=== PATIENT | female | born 1945 | race African-American/Black ===

== ENCOUNTER 2021-06-02 10:53 | Emergency (ER) | payer MEDICARE, MEDICAID, SELFPAY ==
[2021-06-02] VITALS (18 sets, daily range): BP systolic 110–129; BP diastolic 54–71; PULSE 61–79; RESP 9–17; TEMP 36.1; O2SAT 95–100
--- NOTE | ~2021-06-02 | XR_ITS ---
EXAMINATION: XR chest 1V portable EXAM DATE: 06/02/2021 11:30 INDICATION: Altered mental status. TECHNIQUE: Portable AP frontal chest x-ray was obtained. There is no prior study for comparison. FINDINGS: There is cardiomegaly and vascular congestion. No confluent consolidation, pneumothorax or pleural effusion suspected. The bones are osteopenic. There are bony degenerative changes. IMPRESSION: Cardiomegaly, pulmonary vascular congestion. Reviewed, dictated and finalized at location [facility]. ING MACHINE OPERATOR
--- NOTE | ~2021-06-02 | CT_ITS ---
EXAMINATION: CT brain wo con DATE: 06/02/2021 12:03 INDICATION: Altered mental state TECHNIQUE: Computed tomography (CT) of the head was performed without intravenous contrast. The mA wa s adjusted according to patient size. Iterative reconstruction technique was employed. Exam dose: 60 5.33 mGy-cm total exam DLP. COMPARISON: None FINDINGS: Prominent bilateral vertebral artery calcification, basilar artery and bilateral carotid si phon and supraclinoid internal carotid artery calcification. There is nonspecific prominent diminished attenuation of the subcortical and periventricular cerebral white matter, left greater than right, likely due to chronic small vessel ischemic changes. Bilateral periventricular chronic lacunar infarcts, more prominent on the left There is prominence of the ventricles and cortical sulci consistent with central and cortical cerebra l volume loss. There is cerebellar volume loss. No intracranial mass lesion or hemorrhage, midline shift or mass effect or apparent subdural or epidu ral hematoma. No fracture or bone destruction of the cranial vault. The mastoid air cells and paranasal sinuses are unremarkable. IMPRESSION: Cerebral atherosclerosis and chronic small vessel ischemic changes of the cerebral white matter Chronic bilateral periventricular lacunar infarcts No acute intracranial finding Cerebral and cerebellar volume loss Reviewed, dictated and finalized at Location [facility]. Reviewed, dictated and finalized at location A. RIALS COORDINATOR
[2021-06-02 11:43] LABS: Basophils Percent Auto 0.1 % (0.2-1.2); Eosinophils Absolute Auto 0.1 K/mm3 (0-0.3); Eosinophils Percent Auto 0.8 % (0-4.4); Hematocrit 35.3 % (37.0-47.0); Hemoglobin 11.4 g/dL (12.0-15.0); Immature Granulocyte Absolute 0.03 K/mm3 (0.00-0.031); Immature Granulocyte Percent A 0.4 % (0-0.5); Lymphocytes Absolute Auto 1.44 K/mm3 (0.9-3.2); Lymphocytes Percent Auto 18.7 % (18.3-44.2); Mean Corpuscular HGB Conc 32.3 g/dl (32-36); Mean Corpuscular Hemoglobin 33.3 pg (26-34); Mean Corpuscular Volume 103.2 fl (80-100); Mean Platelet Volume 10.8 fl (7.4-10.4); Monocytes Percent Auto 13.1 % (2.6-8.5); Neutrophils Absolute Auto 5.1 K/mm3 (1.3-6.7); Neutrophils Percent Auto 66.9 % (45.5-73.1); Platelet Count Result 172 k/mm3 (150-375); Red Blood Count 3.42 M/mm3 (4.2-5.4); Red Cell Distribution Width 13.9 % (11.5-14.5); White Blood Count 7.7 K/mm3 (4.5-10.0)
[2021-06-02 11:58] LABS: Glucose Point of Care 76 mg/dl (65-105)
[2021-06-02 13:13] LABS: Alanine Aminotransferase 23 U/L (4-35); Alkaline Phosphatase 132 U/L (38-126); Anion Gap 15 mmol/L (8-16); Aspartate Amino Transferase 30 U/L (14-36); Bilirubin,Total 0.4 mg/dL (0.2-1.3); Blood Urea Nitrogen 51 mg/dL (7-17); Calcium 9.3 mg/dL (8.4-10.2); Carbon Dioxide 27 mmol/L (22-30); Chloride 94 mmol/L (98-107); Estimated CRCL calculation 4 ml/min; Estimated Glomerular Filt Rate 4; Glucose 85 mg/dL (65-110); Potassium 4.8 mmol/L (3.4-5.0); Sodium 136 mmol/L (137-145)
--- NOTE | 2021-06-02 14:23 | ECG_ITS ---
Measurements Intervals [place] Rate: 76 P: 61 CA: 225 QRS: -36 QRSD: 193 T: 130 QT: 446 QTc: 502 Interpretive Statements SINUS RHYTHM WITH FIRST DEGREE AV BLOCK LEFT AXIS DEVIATION LEFT BUNDLE BRANCH BLOCK BASELINE ARTIFACT- II, III, AVR, AVL, AVF, V1, V3-V6 ABNORMAL ECG Electronically Signed On 06-02-2021 18:15:14 FIRMWARE SOFTWARE VERIFICATION ENGINEER by Dillon Cheung D.O.
--- NOTE | 2021-06-02 15:20 | ED.GENADULT ---
HPI - General Adult General Chief complaint: Altered Mental Status Stated complaint: AMS Time Seen by Provider: 06/02/21 11:17 Source: patient, EMS and other (tax collector) Mode of arrival: EMS Limitations: physical limitation and dementia History of Present Illness HPI narrative: Patient is a 75-year-old female with dementia presenting for altered mental status per EMS. They reported to the patient has been altered for unknown amount of time. long-term did not call the ER to give patient report prior to her presentation. Patient denies any pain. Patient states that she does not know why she was sent to the emergency department. Patient has history of dementia and confusion. Patient is not end-stage renal failure and receives dialysis. Patient was due for dialysis today but instead it was sent to the emergency department. They did not cough, fever, shortness of breath, vomiting or diarrhea. Patient does not create urine. Related Data Home Medications Medication Instructions Recorded Confirmed B complex with C 20-folic acid 1 cap PO DAILY 06/02/21 [Renal Caps] atorvastatin 10 mg PO HS 06/02/21 bisacodyl 10 mg PO DAILY 06/02/21 carvedilol 12.5 mg PO DAILY 06/02/21 clopidogrel [Plavix] 75 mg PO DAILY 06/02/21 levetiracetam 500 mg PO BID 06/02/21 losartan 50 mg PO DAILY 06/02/21 melatonin 3 mg PO HS 06/02/21 mirtazapine [Remeron] 7.5 mg PO HS 06/02/21 nitroglycerin 0.4 mg SUBLINGUAL Q5-15M PRN 06/02/21 nut.tx.imp.renal fxn,lac-reduc 1 ea PO BID 06/02/21 [[place] Carb Steady] pantoprazole [Protonix] 20 mg PO QAM 06/02/21 psyllium husk [Metamucil] 1 tbsp PO DAILY 06/02/21 sennosides [senna] 17.2 mg PO DAILY 06/02/21 sevelamer carbonate [Renvela] 800 mg PO BID 06/02/21 sucralfate [Carafate] 1 g PO QID 06/02/21 tramadol 50 mg PO Q4H PRN 06/02/21 06/02/21 Allergies Allergy/AdvReac Type Severity Reaction Status Date / Time No Known Allergies Allergy Verified 06/02/21 11:02 Review of Systems Review of Systems: CONSTITUTIONAL: Denies fever, chills, or sweats. EYES: Denies visual changes, redness, or discharge. ENT: Denies rhinorrhea, congestion, sore throat, or otalgia. CARDIOVASCULAR: Denies chest pain, palpitations, or edema. RESPIRATORY: Denies cough or dyspnea. GASTROINTESTINAL: Denies abdominal pain, nausea, vomiting, or diarrhea. GENITOURINARY: Denies dysuria or hematuria. SKIN: Denies rash or itching. MUSCULOSKELETAL: Denies back pain, joint pain, or myalgia. NEUROLOGIC: Denies headache, numbness, dizziness, or weakness. PSYCHIATRIC: Denies anxiety or depression. Exam Narrative: GENERAL: Well-nourished, and in no acute distress. HEAD: Normocephalic, atraumatic. EYES: PERRLA and EOMI. NECK: Supple. No adenopathy or masses. No carotid bruits or JVD CHEST: Clear to auscultation. No respiratory distress. No wheezes rales or rhonchi HEART: Regular rate and rhythm. No murmur heard. Normal peripheral pulses. ABDOMEN: Soft, no sign of pain with abdominal palpation, nondistended, normal active bowel sounds. NEURO: Patient looking around. Patient will only answer questions yes, no, or im okay. Course Vital Signs Vital signs: Vital Signs Temperature 97.0 F L 06/02/21 10:56 Pulse Rate 65 06/02/21 10:56 Respiratory Rate 12 06/02/21 10:56 Blood Pressure 119/68 06/02/21 10:56 Pulse Oximetry 99 06/02/21 10:56 Temperature 97.0 F L 06/02/21 10:56 Pulse Rate 74 06/02/21 19:14 Respiratory Rate 12 06/02/21 19:14 Blood Pressure 129/71 06/02/21 19:14 Pulse Oximetry 99 06/02/21 19:14 Medical Decision Making MDM Narrative Medical decision making narrative: Consult with patient tax collector Dr De La Fuente. Spoke with him about patient status and presentation and he states this is her baseline. Also discussed with him patient presentation, vitals, imaging and labs and he states the patient is normally presenting confused with limited interaction and he feels she should have co
--- NOTE | 2021-06-02 16:30 | PC.NURSE ---
Patient to be discharged back to [facility]. patient report called to [facility] states their transportation services are not available this time of day and will have to transfer back via EMS. Patient's POA contacted regarding patient status. [facility] transfer at 2030.
--- NOTE | 2021-06-02 20:08 | PC.NURSE ---
[facility] called and updated ETA to 2100
[2021-06-02 20:23] LABS: Glucose Point of Care 111 mg/dl (65-105)
--- NOTE | 2021-06-02 21:03 | PC.NURSE ---
Spoke with Diana oakley [place] for pt update.
--- NOTE | 2021-06-02 21:14 | PC.NURSE ---
[facility] here
== END 2021-06-02 21:22 ==
PROVIDERS: Physician Assistant; Emergency Provider Emergency Medicine; PCP Internal Medicine
DX: N18.5 Chronic kidney disease, stage 5 (principal); Z99.2 Dependence on renal dialysis; F03.90 Unspecified dementia, unspecified severity, without behavioral disturbance, psychotic disturbance, mood disturbance, and anxiety; I51.7 Cardiomegaly; R09.89 Other specified symptoms and signs involving the circulatory and respiratory systems; I67.2 Cerebral atherosclerosis; I44.0 Atrioventricular block, first degree; I44.7 Left bundle-branch block, unspecified; Z79.02 Long term (current) use of antithrombotics/antiplatelets
CPT/HCPCS: 36415; 70450; 71045; 80053; 82948; 85025; 93005; 99284